=== PATIENT | female | born 1950 | race Caucasian/White ===

== ENCOUNTER 2016-09-14 06:45 | Outpatient (CLI) ==
[2013-09-03 10:39] VITALS: BMI 34.7
--- NOTE | 2016-09-16 08:34 | ECHO2D ---
Date of Exam: 09/14/16 Ordering Physician: ROGER DOMÍNGUEZ Reason for Echo: CHEST PAIN, SOB M-Mode Normal Adult Results LV Dimensions Normal Adult Results AoV Opening excursions >1.6 >1.6 LVEDD-base- 3.5-5.8 3.4 Ao root dimensions 2.0-3.7 3.2 LVESD-base- 3.1-4.6 L. Atrium dimensions 1.9-3.8 3.1 Post. Wall thickness 0.8-1.1 1.1 IV septum (thickness) 0.7-1.2 1.2 Post. Wall excursion 0.72-1.3 NORMAL Septal motion NORMAL Systolic motion R. Ventricular cavity 1.5-2.0 NORMAL LVEF 60% 75% Paradoxical septal wall motion NORMAL 2-D : 2-D M Mode Echocardiogram was performed using apical four chamber and left parasternal long and short axis views. Mitral, tricuspid and aortic valves appear to be normal. Contractility of the left ventricle seems to be normal, so is the cavity size. Left atrial cavity size and aortic root appear to be normal. There is no pericardial effusion. There is no thrombus noted in the left ventricular or left aortic cavity. No mitral valve prolapse noted. M-MODE: MV: NORMAL AV: NORMAL TV: NORMAL PV: CHAMBER SIZE: NORMAL WALL MOTION: NORMAL PERICARDIUM: NORMAL INTERPRETATION: 1. BORDERLINE LEFT VENTRICULAR HYPERTROPHY 2. NORMAL VALVES 3. NORMAL LEFT VENTRICULAR CONTRACTILITY MTDD
== END 2016-09-14 06:46 | disposition home or self-care (01) ==
LOC: CAR 06:45
PROVIDERS: ATTEND Internal Medicine
DX: R07.9 Chest pain, unspecified (principal); R06.02 Shortness of breath
CPT/HCPCS: 93005; 93010

== ENCOUNTER 2016-09-15 06:49 | Outpatient (CLI) ==
[2013-09-03 10:39] VITALS: BMI 34.7
--- NOTE | 2016-09-16 07:52 | STRESSECHO ---
Date of Test: 09/15/16 Reason for Exam: CHEST PAIN, SOB, HTN, DYSLIPIDEMIA, DM Ordering Physician: ROGER DOMÍNGUEZ Current Medications: METFORMIN, SIMVASTATIN, ASA, LOSARTAN, METOPROLOL, CIPRO Physical Findings: S1, S2, NO S3 Resting EKG: SINUS RHYTHM/NO ACUTE CHANGES Target Heart Rate: 132/156 STAGE MPH/GRADE HEART RATE BPM BLOOD PRESSURE mmhg RHYTHM S-T SEGMENT +/- UP DOWN SYMPTOMS,COMMENTS At Rest 70 104/64 SR X NONE 1 1.7/10% 110 110/56 SR X NONE 2 2.5/12% 120 132/150 SR X NONE 3 3.4/14% 4 4.2/16% 5 5.0/18% Immediately after 128 SR X DIZZY Durations of Exercise: 6:44 Maximum Heart Rate Reached: 128 Reason for Termination: DIZZY INTERPRETATION: 94% OXYGEN SATURATION WITH EXERCISE ON ROOM AIR 1. NON DIAGNOSTIC ST-T WAVE CHANGES FOR ISCHEMIA 2. NO CHEST PAIN OR CHEST DISCOMFORT 3. NO ARRHYTHMIAS 4. BLOOD PRESSURE RESPONSE: NORMAL NORMAL LEFT VENTRICULAR CONTRACTILITY--RESTING AND POST EXERCISE MTDD
--- NOTE | 2016-09-16 07:55 | ECHOSTRESS ---
Date of Exam: 09/15/16 Ordering Physician: ROGER DOMÍNGUEZ Reason for Echo: STRESS TEST--NON DIAGNOSTIC ST- T WAVE CHANGES M-Mode Normal Adult Results LV Dimensions Normal Adult Results AoV Opening excursions >1.6 LVEDD-base- 3.5-5.8 Ao root dimensions 2.0-3.7 LVESD-base- 3.1-4.6 L. Atrium dimensions 1.9-3.8 Post. Wall thickness 0.8-1.1 IV septum (thickness) 0.7-1.2 Post. Wall excursion 0.72-1.3 Septal motion Systolic motion R. Ventricular cavity 1.5-2.0 LVEF 60% Paradoxical septal wall motion 2-D: NORMAL LEFT VENTRICULAR CONTRACTILITY--RESTING AND POST EXERCISE M-MODE: MV: AV: TV: PV: CHAMBER SIZE: WALL MOTION: NORMAL LEFT VENTRICULAR CONTRACTILITY--RESTING AND POST EXERCISE PERICARDIUM: INTERPRETATION: 1. NORMAL LEFT VENTRICULAR CONTRACTILITY--RESTING AND POST EXERCISE MTDD
== END 2016-09-15 06:50 | disposition home or self-care (01) ==
LOC: CAR 06:49
PROVIDERS: ATTEND Internal Medicine
DX: R07.9 Chest pain, unspecified (principal); R06.02 Shortness of breath

== ENCOUNTER 2016-10-07 12:21 | Outpatient (CLI) ==
[2013-09-03 10:39] VITALS: BMI 34.7
[2016-10-07 12:39] LABS: ADD URINE MICROSCOPIC YES; BILIRUBIN,URINE Negative (NEGATIVE); KETONES,URINE Trace (NEGATIVE); LEUKOCYTE ESTERASE ,URINE Trace (NEGATIVE); NITRITE,URINE Negative (NEGATIVE); PROTEIN,URINE Negative (NEGATIVE); URINE, BLOOD Negative (NEGATIVE)
[2016-10-07 12:46] LABS: BASOPHILS % (AUTO) 0.5 % (0.0-3.0); EOSINOPHILS # (AUTO) 0.1 K/ul (0.0-0.7); EOSINOPHILS % (AUTO) 1.3 % (0.0-7.0); HEMATOCRIT 41.3 % (37.0-47.0); HEMOGLOBIN 13.7 g/dl (12.0-16.0); IMMATURE GRANULOCYTE % (AUTO) 0.2 % (0.0-5.0); LYMPHOCYTES # (AUTO) 3.1 K/uL (0.60-3.4); LYMPHOCYTES % (AUTO) 38.4 (10.0-50.0); MEAN CORPUSCULAR HEMOGLOBIN 29.3 pg (27.0-31.0); MEAN CORPUSCULAR HGB CONC 33.2 (31.8-35.4); MEAN CORPUSCULAR VOLUME 88.2 fl (81.0-99.0); MONOCYTES # (AUTO) 0.5 K/uL (0.4-2.0); MONOCYTES % (AUTO) 6.3 (0-10); NEUTROPHILS # (AUTO) 4.3 K/ul (2.0-6.9); NEUTROPHILS % (AUTO) 53.3; PLATELET COUNT 245 10^3/uL (140-440); RED BLOOD COUNT 4.68 10^6/ul (4.20-5.40); WHITE BLOOD COUNT 8.15 K/ul (4.6-10.2)
[2016-10-07 12:56] LABS: ALBUMIN 3.7 g/dL (3.4-5.0); ALBUMIN/GLOBULIN RATIO 1.09; ANION GAP 15.6; BILIRUBIN,TOTAL 0.42 mg/dL (0.00-1.20); BUN/CREATININE RATIO 17.04; CHOL/HDL RATIO 4.4 (4.5-5.5); CREATININE 0.88 mg/dL (0.60-1.30); POTASSIUM 3.6 mmol/L (3.5-5.10); TOTAL PROTEIN 7.1 g/dL (5.8-8.1)
== END 2016-10-07 12:22 | disposition home or self-care (01) ==
LOC: LAB 12:21
PROVIDERS: ATTEND Internal Medicine
DX: E11.9 Type 2 diabetes mellitus without complications (principal); I10 Essential (primary) hypertension; E78.5 Hyperlipidemia, unspecified; E53.8 Deficiency of other specified B group vitamins
CPT/HCPCS: 36415; 80053; 80061; 81001; 84443; 85025

== ENCOUNTER 2017-02-01 09:05 | Outpatient (CLI) ==
[2013-09-03 10:39] VITALS: BMI 34.7
[2017-02-01 09:40] LABS: BASOPHILS # (AUTO) 0.1 K/uL (0-0.2); BASOPHILS % (AUTO) 0.7 % (0.0-3.0); EOSINOPHILS # (AUTO) 0.1 K/ul (0.0-0.7); EOSINOPHILS % (AUTO) 1.7 % (0.0-7.0); HEMATOCRIT 40.9 % (37.0-47.0); HEMOGLOBIN 13.6 g/dl (12.0-16.0); IMMATURE GRANULOCYTE % (AUTO) 0.1 % (0.0-5.0); LYMPHOCYTES # (AUTO) 2.9 K/uL (0.60-3.4); LYMPHOCYTES % (AUTO) 40.7 (10.0-50.0); MEAN CORPUSCULAR HEMOGLOBIN 29.1 pg (27.0-31.0); MEAN CORPUSCULAR HGB CONC 33.3 (31.8-35.4); MEAN CORPUSCULAR VOLUME 87.6 fl (81.0-99.0); MONOCYTES # (AUTO) 0.4 K/uL (0.4-2.0); MONOCYTES % (AUTO) 5.9 (0-10); NEUTROPHILS # (AUTO) 3.6 K/ul (2.0-6.9); NEUTROPHILS % (AUTO) 50.9; PLATELET COUNT 214 10^3/uL (140-440); RED BLOOD COUNT 4.67 10^6/ul (4.20-5.40); WHITE BLOOD COUNT 7.06 K/ul (4.6-10.2)
[2017-02-01 10:26] LABS: ALBUMIN 3.6 g/dL (3.4-5.0); ALBUMIN/GLOBULIN RATIO 1.13; BILIRUBIN,TOTAL 0.6 mg/dL (0.00-1.20); BUN/CREATININE RATIO 18.18; CALCIUM 9.4 mg/dL (8.2-10.2); CREATININE 0.88 mg/dL (0.60-1.30); TOTAL PROTEIN 6.8 g/dL (5.8-8.1)
== END 2017-02-01 09:06 | disposition home or self-care (01) ==
LOC: LAB 09:05
PROVIDERS: ATTEND Internal Medicine
DX: E11.9 Type 2 diabetes mellitus without complications (principal); I10 Essential (primary) hypertension; E78.5 Hyperlipidemia, unspecified; E53.8 Deficiency of other specified B group vitamins; E88.81 Metabolic syndrome and other insulin resistance
CPT/HCPCS: 36415; 80053; 80061; 82607; 83036; 84443; 85025

== ENCOUNTER 2017-02-03 13:37 | Outpatient (CLI) ==
[2013-09-03 10:39] VITALS: BMI 34.7
--- NOTE | 2017-02-05 08:28 | MAMMO ---
EXAM: Bilateral digital screening mammogram History: Screening Comparison: Bilateral mammogram 11/15/2015 Findings: MLO and CC views of bilateral breasts demonstrate scattered fibroglandular breast parench yma. Stable benign right breast calcifications. There are no dominant masses, no suspicious microc alcifications and no architectural distortions Impression: Benign stable mammogram. Recommend followup routine screening mammography in 1 year. BIRADS 2
== END 2017-02-03 13:38 | disposition home or self-care (01) ==
LOC: RAD 13:37
PROVIDERS: ATTEND Internal Medicine
DX: Z12.31 Encounter for screening mammogram for malignant neoplasm of breast (principal)

== ENCOUNTER 2018-01-19 09:40 | Emergency (ER) | payer OTHER ==
[2018-01-19 09:45] VITALS: BP 162/92; TEMP 99.3; BMI 30.3
[2018-01-19] MEDS ORDERED: MORPHINE 4 MG/ML SYRINGE IM STA (10:04)
[2018-01-19] MEDS ORDERED: VALIUM PO STA (10:05)
[2018-01-19] MEDS ORDERED: ZOFRAN 4 MG/2 ML IM STA (10:06)
[2018-01-19] MEDS ORDERED: ASPIRIN CHEWABLE PO STA (11:22)
[2018-01-19] MEDS ORDERED: DILAUDID IVP STA (11:26)
--- NOTE | 2018-01-19 11:27 | CT ---
EXAM: CT lumbar spine without contrast. HISTORY: Low back pain. COMPARISON: 04/12/2015. TECHNIQUE: Multiple axial images of the lumbar spine were obtained without intravenous contrast. Im ages were reformatted in the sagittal and coronal planes. FINDINGS: Slight retrolisthesis of L3 on L4, L4 on L5 and L5 on S1 noted. Vertebral body heights ar e maintained. There is mild loss of disc height at L3-4 and L4-5. No fracture identified. Paravert ebral soft tissues are without acute abnormality. T12-L1: No neural compromise. L1-2: No neural compromise. L2-3: Facet arthropathy without neural compromise. L3-4: Broad-based disc bulge and facet arthropathy with mild central canal stenosis and neural damari inal narrowing. L4-5: Broad-based disc bulge, facet arthropathy and thickening of ligamentum flavum with mild centra l canal stenosis and neural foraminal narrowing. L5-S1: Facet arthropathy with mild left neural foraminal narrowing. IMPRESSION: 1. No fracture. 2. Mild multilevel degenerative changes.
--- NOTE | 2018-01-19 11:45 | DI ---
EXAM: CHEST FRONTAL VIEW HISTORY: Sudden onset pain. COMPARISON: 09/03/2013 FINDINGS: Mildly prominent heart size is again noted. There are scattered calcifications suggesting old granulomatous disease. No acute infiltrates are seen. No vascular congestion. There is no cons olidation, visible pleural fluid or pneumothorax. Bones reveal no acute fracture. IMPRESSION: No acute cardiopulmonary process.
--- NOTE | 2018-01-19 12:47 | ED.PDOC ---
General ED Provider: Dr. PERNELL MARTINEZ Chief Complaint: Back Pain Stated Complaint: low back pain lumbar Time Seen by Physician: 10:00 (history of chronic back issue ) Mode of Arrival: Walk-In Information Source: Patient Exam Limitations: No limitations Primary Care Provider: ROGER DOMÍNGUEZ Nursing and Triage Documentation Reviewed and Agree: Yes Reviewed sepsis parameters & appropriate labs ordered?: Yes System Inflammatory Response Syndrome: Not Applicable Sepsis Protocol: For patient's 13 years and over: Temp is 96.8 and below OR 101 and greater Pulse >90 BPM Resp >20/minute Acutely Altered Mental Status Are patient's symptoms suggestive of a new infection, such as: -Pneumonia -Skin, Soft Tissue -Endocarditis -UTI -Bone, Joint Infection -Implantable Device -Acute Abdominal Infection -Wound Infection -Meningitis -Blood Stream Catheter Infection -Unknown System Inflammatory Response Syndrome: Not Applicable Musculoskeletal Complaint Exam - Back Pain Complaint/Exam Mechanism of Injury: Reports: No known trauma Onset/Duration: 1 day Timing: Constant Episodes Lasting: Hours Initial Severity: Severe Current Severity: Severe Location: Reports: Discrete Character: Reports: Aching, Spasmodic, Stiffness Aggravating: Reports: Movements, Lifting, Bending, Walking Alleviating: Reports: Rest, Position Associated Signs and Symptoms: Denies: Swelling, Redness, Bruising, Fever, Weakness, Numbness, Tingling, Abdominal pain, Flank pain, Bladder incontinence, Bowel incontinence, Weight loss, Pain with weight bearing Related History: Reports: Similar episode TAD Risk Factors: Reports: Hypertension AAA Risk Factors: Reports: Hypertension Cauda Equina Risk Factors: Reports: None Epidural Abcess Risk Factors: Reports: None Related Surgical History: Reports: None Focal Tenderness: No Paraspinal Muscle Tenderness: No Paraspinal Muscle Spasm: No Scoliosis: No Lordosis: No Kyphosis: No SLR Test: Right Negative, Left Negative Hip Motion Testing Pain: Right Negative, Left Negative Focal Weakness: Present: None Focal Sensory Loss: Present: None Gait: Present: Normal Differential Diagnoses: Strain, Sprain Review of Systems - Review Of Systems Constitutional: Reports: No symptoms Eyes: Reports: No symptoms Ears, Nose, Mouth, Throat: Reports: No symptoms Respiratory: Reports: No symptoms Cardiac: Reports: Chest pain GI: Reports: No symptoms : Reports: No symptoms Musculoskeletal: Reports: Back pain Skin: Reports: No symptoms Neurological: Reports: No symptoms Endocrine: Reports: No symptoms Hematologic/Lymphatic: Reports: No symptoms All Other Systems: Reviewed and Negative Past Medical History - Past Medical History Previously Healthy: Yes Endocrine: Reports: None Cardiovascular: Reports: Hypertension Respiratory: Reports: None Hematological: Reports: None Gastrointestinal: Reports: None Genitourinary: Reports: None Neuro/Psych: Reports: None Musculoskeletal: Reports: None Cancer: Reports: None Last Menstrual Period: menopause - Surgical History General Surgical History: Reports: None - Family History Family History: Reports: None - Social History Smoking Status: Former smoker Hx Substance Use: No Alcohol Screening: None Physical Exam - Physical Exam Appearance: Well-appearing, No pain distress, Well-nourished Eyes: WENDY, EOMI, Conjunctiva clear ENT: Ears normal, Nose normal, Oropharynx normal Respiratory: Airway patent, Breath sounds clear, Breath sounds equal, Respirations nonlabored Cardiovascular: RRR, Pulses normal, No rub, No murmur GI/: Soft, Nontender, No masses, Bowel sounds normal, No Organomegaly Musculoskeletal: Normal strength, ROM intact, No edema, No calf tenderness Skin: Warm, Dry, Normal color Neurological: Sensation intact, Motor intact, Reflexes intact, Cranial nerves intact, Alert, Oriented Psychiatric: Affect appropriate, Mood appropriate Re-Evaluation - Re-Evaluation Time of Re-Evaluation: 11:30 (chest pain onset , negative vomiting) Pain Level: 10/10 chest pain occured at 11:30 am the pain was central with no radition - Re-Evaluation Time of Re-Evaluation: 12:15 Status: Improved Vital Signs Stable: Yes Pain Level: 0 Appearance: NAD Skin: Warm and Dry Neuro: Alert and Oriented X3 CV: RRR (, ekg negative for acute event) Physician Notification - Case Discussed Physician Notified: Saritha Time of Notification: 12:54 (TRANSFER ) Critical Care Note - Critical Care Note Total Time (mins): 0 Course - Course Hematology/Chemistry: 01/19/18 11:25 01/19/18 11:25 Orders, Labs, Meds: Lab Review 01/19/18 01/19/18 01/19/18 11:25 11:25 11:25 WBC 8.85 RBC 5.06 Hgb 14.6 Hct 43.8 MCV 86.6 MCH 28.9 MCHC 33.3 RDW Coeff of Jonah 12.8 Plt Count 234 Immature Gran % (Auto) 0.2 Neut % (Auto) 63.3 Lymph % (Auto) 26.8 [place] % (Auto) 7.7 Eos % (Auto) 1.5 Baso % (Auto) 0.5 Immature Gran # (Auto) 0.0 Neut # (Auto) 5.6 Lymph # (Auto) 2.4 [place] # (Auto) 0.7 Eos # (Auto) 0.1 Baso # (Auto) 0.0 PT 9.4 INR 0.94 APTT 24.3 Sodium 143 Potassium 3.8 Chloride 102 Carbon Dioxide 29 Anion Gap 15.8 BUN 15 Creatinine 0.82 Estimated GFR (MDRD) 70.00 BUN/Creatinine Ratio 18.29 Glucose 81 L Calcium 10.5 H Total Bilirubin 0.8 AST 45 H ALT 33 Alkaline Phosphatase 65 Total Creatine Kinase 71 Troponin I < 0.0100 Total Protein 7.9 Albumin 4.1 Globulin 3.8 Albumin/Globulin Ratio 1.08 Orders Category Date Time Status EKG-(ED ONLY) Stat CARDIO 01/19/18 11:22 Completed EKG-(ED ONLY) Stat CARDIO 01/19/18 12:50 Ordered ED IV/MEDIPORT/POWERPORT .ONCE EMERGENCY 01/19/18 11:21 Active CBC W/ AUTO DIFF Stat LAB 01/19/18 11:25 Completed COMPREHENSIVE METABOLIC PANEL Stat LAB 01/19/18 11:25 Completed CREATINE KINASE Stat LAB 01/19/18 11:25 Completed PARTIAL THROMBOPLASTIN TIME Stat LAB 01/19/18 11:25 Completed PT WITH INR Stat LAB 01/19/18 11:25 Completed TROPONIN I Stat LAB 01/19/18 11:25 Completed 0.9 % Sodium Chloride [Saline Flush] MEDS 01/19/18 11:21 Active 1 syr IVF PRN PRN Aspirin [Aspirin Chewable] MEDS 01/19/18 11:22 Discontinued 243 mg PO ONCE STA Diazepam [Valium] MEDS 01/19/18 10:05 Discontinued 5 mg PO ONCE STA Hydromorphone HCl [Dilaudid] MEDS 01/19/18 11:26 Discontinued 0.5 mg IVP ONCE STA Morphine Sulfate [Morphine 4 mg/ml Syringe] MEDS 01/19/18 10:04 Discontinued 4 mg IM ONCE STA Ondansetron HCl/Pf [Zofran 4 mg/2 ml] MEDS 01/19/18 10:06 Discontinued 4 mg IM ONCE STA CHEST, 1V AP ONLY Stat RADS 01/19/18 11:[address] LUMBAR SPINE W/O CONTRAST Stat RADS 01/19/18 10:06 Completed Medications Generic Name Dose Route Start Last Admin Trade Name Freq PRN Reason Stop Dose Admin Sodium Chloride 1 syr 01/19/18 11:21 Saline Flush IVF PRN PRN To flush IV Discontinued Medications Generic Name Dose Route Start Last Admin Trade Name Freq PRN Reason Stop Dose Admin Aspirin 243 mg 01/19/18 11:22 01/19/18 11:37 Aspirin Chewable PO 01/19/18 11:23 162 mg ONCE STA Administration Diazepam 5 mg 01/19/18 10:05 01/19/18 10:17 Valium PO 01/19/18 10:06 5 mg ONCE STA Administration Hydromorphone HCl 0.5 mg 01/19/18 11:26 01/19/18 12:01 Dilaudid IVP 01/19/18 11:27 0.5 mg ONCE STA Administration Morphine Sulfate 4 mg 01/19/18 10:04 01/19/18 10:20 Morphine 4 Mg/Ml Syringe IM 01/19/18 10:05 4 mg ONCE STA Administration Ondansetron HCl 4 mg 01/19/18 10:06 01/19/18 10:21 Zofran 4 Mg/2 Ml IM 01/19/18 10:07 4 mg ONCE STA Administration Vital Signs: Temp Pulse Resp BP Pulse Ox 01/19/18 09:41 99.3 F 84 20 162/92 H 96 Departure - Departure Time of Disposition: 12:55 (NO ACUTE EVENT WHILE WHILE AT [facility] ED ) Disposition: TSF SHORT-TRM HOSP Discharge Problem: Chest pain Qualifiers: Chest pain type: unspecified Qualified Code(s): R07.9 - Chest pain, unspecified Instructions: Chest Pain (DC) Condition: Good Pt referred to PMD for follow-up: Yes IPMP verified?: No Additional Instructions: Please call your Family Physician as soon as possible to schedule a follow-up appointment. Allergies/Adverse Reactions: Allergies Iodinated Contrast- Oral and IV Dye Adverse Reaction (Verified 01/19/18 09:49) iodine Adverse Reaction (Verified 01/19/18 09:49) latex Adverse Reaction (Verified 01/19/18 09:48) Penicillins Adverse Reaction (Verified 01/19/18 09:48) transparent dressing Adverse Reaction (Verified 01/19/18 09:48) Home Medications: Ambulatory Orders Hydrochlorothiazide 25 mg PO DAILY 09/03/13 Metoprolol Succinate [Toprol Xl] 100 mg PO DAILY 09/03/13 Albiglutide [Tanzeum] 30 mg SQ WEEKLY 01/19/18 Amlodipine Besylate [Norvasc] 10 mg PO DAILY 01/19/18 Aspirin [Aspir-Low] 81 mg PO DAILY 01/19/18 Losartan Potassium 100 mg PO DAILY 01/19/18 Metformin HCl 1,000 mg PO TID 01/19/18 Omeprazole Magnesium [Prilosec Otc] 20 mg PO DAILY 01/19/18 Simvastatin [Zocor] 40 mg PO DAILY 01/19/18 Disposition Discussed With: Patient
== END 2018-01-19 13:18 | disposition short-term general hospital (02) ==
LOC: ED 09:40
DX: R07.9 Chest pain, unspecified (principal); M54.5 Low back pain; I10 Essential (primary) hypertension; Z79.899 Other long term (current) drug therapy
CPT/HCPCS: 36415; 80053; 82550; 84484; 85025; 85610; 85730; 93005; 93010; 96372; 96374; 99285

== ENCOUNTER 2018-09-19 13:18 | Outpatient (CLI) ==
--- NOTE | 2018-09-21 09:15 | MAMMO ---
EXAM: Digital screening mammogram with tomosynthesis HISTORY: Screening COMPARISON: 02/03/2017 FINDINGS: Digital MLO and CC views of the right and left breast were performed. Tomosynthesis was performed. There are scattered fibroglandular densities. Computer aided detection utilized. Benign calcifications in the right breast. There is no evidence for mass, asymmetry, distortion, or suspic ious calcifications in either breast. IMPRESSION: 1. No evidence of malignancy in the right or left breast. 2. Annual screening mammogram is recommended in one year. BIRADS category 2, benign
== END 2018-09-19 13:19 | disposition home or self-care (01) ==
LOC: RAD 13:18
PROVIDERS: ATTEND Internal Medicine
DX: Z12.31 Encounter for screening mammogram for malignant neoplasm of breast (principal)

== ENCOUNTER 2023-11-09 13:57 | Observation (INO) ==
[2023-11-09 14:43] LABS: BASOPHILS % (AUTO) 0.5 % (0.0-3.0); EOSINOPHILS # (AUTO) 0.2 K/ul (0.0-0.7); HEMATOCRIT 43.2 % (37.0-47.0); IMMATURE GRANULOCYTE % (AUTO) 0.1 % (0.0-5.0); LYMPHOCYTES # (AUTO) 3.8 K/uL (0.60-3.4); LYMPHOCYTES % (AUTO) 43.8 (10.0-50.0); MEAN CORPUSCULAR HEMOGLOBIN 28.2 pg (27.0-31.0); MEAN CORPUSCULAR HGB CONC 32.4 (31.8-35.4); MEAN CORPUSCULAR VOLUME 87.1 fl (81.0-99.0); MONOCYTES # (AUTO) 0.6 K/uL (0.4-2.0); MONOCYTES % (AUTO) 7.4 (0-10); NEUTROPHILS % (AUTO) 46.2 % (42.2-75.2); PLATELET COUNT 253 10^3/uL (140-440); RDW COEFFICIENT OF VARIATION 13.5 % (11.6-14.8); RED BLOOD COUNT 4.96 10^6/ul (4.20-5.40); WHITE BLOOD COUNT 8.66 K/ul (4.6-10.2)
--- NOTE | 2023-11-09 14:49 | ED.PDOC ---
General ED Provider: Dr. HOMERO PARHAM MD Chief Complaint: Chest Pain Stated Complaint: 73 yo female with hx of HTN, DM type 2,asthma, dyslipidemia coming to the ER for chest pain. Patient was walking home from her daughter's house to her house and she feels retrosternal chest pain aggravated by walking elevated by rest the pain is dull squeezing retrosternal nonradiating. Patient was also feeling short of breath but no wheezes. Patient reports also history of anxiety she did not feel anxious when she had a chest pain. Otherwise she denies any headache, nausea, vomiting, changes in bowel or urine. Time Seen by Provider: 11/09/23 14:10 Information Source: Patient Primary Care Provider: ROGER DOMÍNGUEZ MD Nursing and Triage Documentation Reviewed and Agree: Yes What is Opioid Naive?: *Opioid Naive implies the patient is not already taking opioids or not chronically receiving opioids on a daily basis. *PRN dosing is not "usually" associated with tolerance. *Patients are at higher risk of over-sedation and aspiration. What is Opioid Tolerant?: *Opioid Tolerance implies less than the expected response to an opioid. *Acquired tolerance is defined by the patient taking 60mg of oral morphine daily (or equianalgesic dose of another opioid) for 1 week or more. *Often associated with chronic pain. *May take more than usual dose to achieve desired pain control. Review of Systems Review Of Systems Constitutional: Reports No symptoms All Other Systems: Reviewed and Negative [facility] Family History FATHER Cancer BROTHER Hypertension Heart disease SISTER Hypertension CVA (cerebral vascular accident) Social History Smoking and tobacco status: Former smoker Quit date: 02/27/94 Passive smoking exposure: No How long ago did patient quit smokin years ago Quit status: quit date established Second hand smoke exposure: No Smoking risk assessment performed: Yes Alcohol intake: never Counseling given: No Counseling provided: none Substance use type: does not use Special ye needs: No Agree to transfusion: Yes Adopted: No Caregiver/support person: No Foster care: No Household members: none Housing: house Marital status: D Lives independently: Yes Daycare: no daycare Number of children: 2 Highest education level completed: Associate degree: occupational, technical, vocational program Financial difficulty paying for basics: somewhat hard service: No longterm: No Current occupational status: unemployed 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 Leisure activites: other History of recent travel: No Sexually active: No Do you think of yourself as: straight/heterosexual Current gender identity: female Seatbelt use: always Helmet use: No Drives intoxicated or rides with intoxicated sanitation truck driver: No Current diet type/program: regular Well-balanced diet: about half the time Caffeine: Yes Eating out: 1-3 times/week Reads food labels: sometimes During the past year weight has: remained stable Water heater temperature set < 120 degrees: Yes Working smoke detector in home: Yes Fire extinguisher in home: Yes Carbon monoxide detector in home: Yes Firearms in home: No What type of physical activity do you participate in?: walking Physical activity functional status: independent ambulation How many days of moderate to strenuous exercise, like a brisk walk, did you do in the last 7 days: 4 Female Reproductive History Menstrual Age of Menarche: 15 Hx Hysterectomy: No Hx Tubal Ligation: Yes Physical Exam Physical Exam Appearance: Reports Well-appearing Ill-appearing: None Pain Distress: None Eyes: Reports WENDY ENT: Reports Ears normal and Nose normal Neck: Supple Respiratory: Reports Airway patent, Breath sounds clear, Breath sounds equal and Other (Tenderness to palpation to left parasternal area.) Cardiovascular: Reports RRR, Pulses normal, No rub and No murmur GI/: Reports Soft, Nontender, No masses and Bowel sounds normal Musculoskeletal: Reports Normal strength, ROM intact and No edema Skin: Reports Warm and Normal color Neurological: Reports Sensation intact and Motor intact Psychiatric: Reports Affect appropriate Interpretation EKG Interpretation EKG Interpretation By: ED Physician Time of EKG #1: 14:13 Rate: Normal Rhythm: Sinus Ectopy: None [place]: NL ST Segment: Normal Interpretation: No signs of acute ischemia Course Course 11/09/23 14:35 11/09/23 14:35 Orders, Labs, Meds: Lab Review 11/09/23 11/09/23 14:35 16:00 WBC 8.66 RBC 4.96 Hgb 14.0 Hct 43.2 MCV 87.1 MCH 28.2 MCHC 32.4 RDW Coeff of Jonah 13.5 Plt Count 253 Immature Gran % (Auto) 0.1 Neut % (Auto) 46.2 Lymph % (Auto) 43.8 S[place] % (Auto) 7.4 Eos % (Auto) 2.0 Baso % (Auto) 0.5 Neut # (Auto) 4.0 Lymph # (Auto) 3.8 H [place] # (Auto) 0.6 Eos # (Auto) 0.2 Baso # (Auto) 0.0 Immature Gran # (Auto) 0.0 Sodium 137.4 Potassium 3.58 Chloride 99.0 Carbon Dioxide 26.5 Anion Gap 15.48 BUN 21.9 H Creatinine 1.09 Estimated GFR (MDRD) 49.00 BUN/Creatinine Ratio 20.09 Glucose 111.2 H Calcium 10.18 Total Bilirubin 0.76 AST 32.8 ALT 23.5 Alkaline Phosphatase 64.1 Total Creatine Kinase 52.6 Troponin I < 0.012 < 0.012 Total Protein 7.71 Albumin 4.60 Globulin 3.11 Albumin/Globulin Ratio 1.47 D-Dimer 320.77 Orders Category Date Time Status EKG-(ED ONLY) Stat CARDIO 11/09/23 14:25 Completed CBC W/ AUTO DIFF Stat LAB 11/09/23 14:35 Completed COMPREHENSIVE METABOLIC PANEL Stat LAB 11/09/23 14:35 Completed COVID [SARS COV-2 RNA RAPID NISSA] Stat LAB 11/09/23 17:17 Ordered CREATINE KINASE Stat LAB 11/09/23 14:35 Completed D-DIMER Stat LAB 11/09/23 14:35 Completed TROPONIN I Stat LAB 11/09/23 14:35 Completed TROPONIN I Stat LAB 11/09/23 16:00 Completed Aspirin [Aspirin Chewable] Meds 11/09/23 14:25 Discontinued 324 mg PO ONCE STA CHEST, 1V AP ONLY Stat RADS 11/09/23 14:25 Completed Medications Discontinued Medications Generic Name Dose Route Start Last Admin Trade Name Freq PRN Reason Stop Dose Admin Aspirin 324 mg 11/09/23 14:25 11/09/23 15:16 Aspirin 81 Mg Tab.Chew PO 11/09/23 14:26 324 mg ONCE STA Administration Vital Signs: Temp Pulse Resp BP Pulse Ox 11/09/23 14:00 97.6 F 82 20 150/86 H 100 EKG did not show any acute changes troponin negative x 2 chest x-ray no acute findings D-dimer is negative spoke with Dr. Domínguez and discussed the patient case with them and he agreed with keeping the patient under observation for cardiac stress test tomorrow. MONISHA Risk Score MONISHA Risk Score: Risk Score Odds of by 30D 0 0.1 (0.1-0.2) 1 0.3 (0.2-0.3) 2 0.4 (0.3-0.5) 3 0.7 (0.6-0.9) 4 1.2 (1.0-1.5) 5 2.2 (1.9-2.6) 6 3.0 (2.5-3.6) 7 4.8 (3.8-6.1) Physician Progress Note: [] Discharge Plan Discharge Patient Disposition: ADMITTED INPATIENT Discharge Problem: Chest pain Prescriptions: No Action (DME) OneTouch Ultra Test Strip See Rx Instructions .ROUTE Qty: 100 5RF Rx Instructions: As directed E11.9 test twice daily metformin 500 mg tablet See Rx Instructions .ROUTE .COMPLEX Qty: 90 0RF Dose Instruction: TAKE 1 TABLET BY MOUTH EVERY DAY Rx Instructions: TAKE 1 TABLET BY MOUTH EVERY DAY losartan 100 mg tablet See Rx Instructions .ROUTE .COMPLEX Qty: 90 0RF Dose Instruction: TAKE 1 TABLET BY MOUTH DAILY Rx Instructions: TAKE 1 TABLET BY MOUTH DAILY amlodipine 5 mg tablet 5 mg PO QDAY Qty: 90 1RF tobramycin 0.3 % drops 2 drp BOTHEYES TID 7 Days Qty: 5 0RF Jardiance 25 mg tablet See Rx Instructions .ROUTE .COMPLEX Qty: 30 3RF Dose Instruction: TAKE ONE TABLET DAILY Rx Instructions: TAKE ONE TABLET DAILY metoprolol succinate [Toprol XL] 100 mg tablet extended release 24 hr 100 mg PO DAILY Qty: 90 1RF hydrochlorothiazide 25 mg tablet 25 mg PO DAILY Qty: 90 1RF aspirin [Aspir-Low] 81 MG tablet,delayed release (DR/EC) 81 mg PO DAILY omeprazole magnesium [Prilosec OTC] 20 MG tablet,delayed release (DR/EC) 20 mg PO DAILY alprazolam [Xanax] 0.25 mg tablet 0.25 mg PO QHS PRN (Reason: anxiety) folic acid 400 mcg tablet 0.4 mg PO QDAY B Complex Plus Vitamin C [id number] mg capsule 1 cap PO QDAY Rx Instructions: give with food (meal/snack) cholecalciferol (vitamin D3) 25 mcg (1,000 unit) capsule 25 mcg PO QDAY metformin 1,000 mg tablet 1,000 mg PO BID Qty: 180 1RF albuterol sulfate 90 mcg/actuation HFA aerosol inhaler 2 puff inhalation QID PRN (Reason: shortness of breath) simvastatin [Zocor] 40 mg tablet 40 mg PO DAILY Qty: 90 1RF Did you review [place] for ALL controlled substances?: Not Applicable ED Provider: HOMERO PARHAM Condition: Good
--- NOTE | 2023-11-09 14:54 | DI ---
EXAM: SINGLE VIEW CHEST XRAY. Date: 11/09/2023 Comparison: 03/26/2023 History: Chest pain Findings: No acute osseous abnormalities are seen. The lungs are clear . The cardiac silhouette is within normal limits. The pulmonary vasculature is within normal limits. Impresson: No acute intrathoracic findings.
[2023-11-09 14:58] LABS: ALANINE AMINOTRANSFERASE 23.5 U/L (0-35); ALKALINE PHOSPHATASE 64.1 U/L (53-141); ASPARTATE AMINO TRANSFERASE 32.8 U/L (14-36); BILIRUBIN,TOTAL 0.76 mg/dL (0.2-1.3); BLOOD UREA NITROGEN 21.9 mg/dL (7-17); CALCIUM 10.18 mg/dL (8.4-10.2); CARBON DIOXIDE 26.5 mmol/L (22-30.0); CREATINE KINASE 52.6 U/L (30-135); CREATININE 1.09 mg/dL (0.60-1.30); GLUCOSE 111.2 mg/dL (74-106); POTASSIUM 3.58 mmol/L (3.5-5.1); SODIUM 137.4 mmol/L (134.5-145); TOTAL PROTEIN 7.71 g/dL (6.3-8.2)
[2023-11-09 15:10] LABS: TROPONIN I < 0.012 ng/ml (0.0000-0.120)
[2023-11-09] MEDS: ASPIRIN CHEWABLE PO STA (15:16)
[2023-11-09] MEDS ORDERED: TYLENOL PO PRN (17:21)
[2023-11-09] MEDS ORDERED: NITROSTAT SL PRN (17:21)
[2023-11-09] MEDS ORDERED: ZOFRAN 4 MG/2 ML IVP PRN (17:25)
[2023-11-09 17:34] LABS: SARS COV-2 RNA RAPID NAAT NEGATIVE (NEGATIVE)
[2023-11-09 18:37] VITALS: BMI 29.2
[2023-11-09] MEDS ORDERED: VENTOLIN HFA IH PRN (19:19)
[2023-11-09] MEDS ORDERED: HUMULIN R SUBCUT PRN (19:21)
[2023-11-09 20:57] LABS: CHOLESTEROL 155.1 mg/dL (0-200); HDL CHOLESTEROL 40.3 mg/dL (35-80); TRIGLYCERIDES 186.5 mg/dL (0-150)
[2023-11-09] MEDS ORDERED: XANAX PO PRN (21:00)
[2023-11-09 21:29] LABS: THYROID STIMULATING HORMONE 1.84 uIU/L (0.465-4.68)
[2023-11-10 05:29] LABS: BASOPHILS % (AUTO) 0.4 % (0.0-3.0); EOSINOPHILS # (AUTO) 0.2 K/ul (0.0-0.7); EOSINOPHILS % (AUTO) 2.4 % (0.0-7.0); HEMATOCRIT 41.3 % (37.0-47.0); HEMOGLOBIN 12.9 g/dl (12.0-16.0); IMMATURE GRANULOCYTE % (AUTO) 0.1 % (0.0-5.0); LYMPHOCYTES # (AUTO) 3.3 K/uL (0.60-3.4); LYMPHOCYTES % (AUTO) 41.2 (10.0-50.0); MEAN CORPUSCULAR HEMOGLOBIN 27.3 pg (27.0-31.0); MEAN CORPUSCULAR HGB CONC 31.2 (31.8-35.4); MEAN CORPUSCULAR VOLUME 87.5 fl (81.0-99.0); MONOCYTES # (AUTO) 0.7 K/uL (0.4-2.0); MONOCYTES % (AUTO) 8.9 (0-10); NEUTROPHILS # (AUTO) 3.8 K/ul (2.0-6.9); PLATELET COUNT 224 10^3/uL (140-440); RDW COEFFICIENT OF VARIATION 13.4 % (11.6-14.8); RED BLOOD COUNT 4.72 10^6/ul (4.20-5.40); WHITE BLOOD COUNT 7.98 K/ul (4.6-10.2)
[2023-11-10 05:42] LABS: ALANINE AMINOTRANSFERASE 21.4 U/L (0-35); ALBUMIN 3.97 g/dL (3.5-5.0); ALKALINE PHOSPHATASE 55.9 U/L (53-141); ASPARTATE AMINO TRANSFERASE 26.7 U/L (14-36); BILIRUBIN,TOTAL 0.71 mg/dL (0.2-1.3); BLOOD UREA NITROGEN 20.6 mg/dL (7-17); CALCIUM 9.24 mg/dL (8.4-10.2); CARBON DIOXIDE 30.7 mmol/L (22-30.0); CHLORIDE 101.3 mmol/L (98-107); CREATININE 0.91 mg/dL (0.60-1.30); GLUCOSE 135.5 mg/dL (74-106); POTASSIUM 3.12 mmol/L (3.5-5.1); SODIUM 138.4 mmol/L (134.5-145); TOTAL PROTEIN 6.67 g/dL (6.3-8.2)
[2023-11-10] MEDS: ASPIRIN EC PO SCH (07:33)
[2023-11-10] MEDS: COZAAR PO SCH (08:35)
[2023-11-10] MEDS: TOPROL XL PO SCH (08:35)
[2023-11-10] MEDS: HYDROCHLOROTHIAZIDE PO SCH (08:35)
[2023-11-10] MEDS: JARDIANCE PO SCH (08:35)
[2023-11-10] MEDS: VITAMIN D PO SCH (08:36)
[2023-11-10] MEDS: NORVASC PO SCH (08:36)
[2023-11-10] MEDS: K-DUR PO ONE (08:41)
--- NOTE | 2023-11-10 13:07 | PCM.SS ---
Provider Provider: POLLY BOOTHE MD, [facility] Admission Date Admission Date: 11/09/23 Discharge Date Discharge Date: 11/10/23 Primary Care Physician Primary Care Physician: ROGER BOOTHE MD Chief Complaint Reason For Visit: chest pain, elevated HR History of Present Illness History of Present Illness: Admitted 11/09/23 17:39, this 73 year old /WHITE/F presented to the ER with chest pain and shortness of breath. Patient states that she has had intermittent chest pain for the past 1 month. Describes the pain as a dull ache and sometimes heaviness accompanied with shortness of breath. At times she feels her heart racing and has to cough or bear down to get the symptoms to resolve. Has had 4 heart caths in the past with no stents. Has had a ventricular blood clot back in 2018. States that prior to arrival to the ER her HR on her pulse ox showed in the 200s and oxygen sat in the 80s. While in ER, these findings were not present. Troponin x2 negative. EKG sinus with no acute changes. Denies fever, chills, N/V/D. [facility] Medical History Asthma J45.909 - Unspecified asthma, uncomplicated (ICD-10) Family History FATHER Cancer BROTHER Hypertension Heart disease SISTER Hypertension CVA (cerebral vascular accident) Social History Smoking and tobacco status: Former smoker Quit date: 02/27/94 Passive smoking exposure: No How long ago did patient quit smokin years ago Quit status: quit date established Second hand smoke exposure: No Smoking risk assessment performed: Yes Alcohol intake: never Counseling given: No Counseling provided: none Substance use type: does not use Special ye needs: No Agree to transfusion: Yes Adopted: No Caregiver/support person: No Foster care: No Household members: none Housing: house Marital status: D Lives independently: Yes Daycare: no daycare Number of children: 2 Highest education level completed: Associate degree: occupational, technical, vocational program Financial difficulty paying for basics: somewhat hard service: No long-term: No Current occupational status: unemployed 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 Leisure activites: other History of recent travel: No Sexually active: No Do you think of yourself as: straight/heterosexual Current gender identity: female Seatbelt use: always Helmet use: No Drives intoxicated or rides with intoxicated interstate bus driver: No Current diet type/program: regular Well-balanced diet: about half the time Caffeine: Yes Eating out: 1-3 times/week Reads food labels: sometimes During the past year weight has: remained stable Water heater temperature set < 120 degrees: Yes Working smoke detector in home: Yes Fire extinguisher in home: Yes Carbon monoxide detector in home: Yes Firearms in home: No What type of physical activity do you participate in?: walking Physical activity functional status: independent ambulation How many days of moderate to strenuous exercise, like a brisk walk, did you do in the last 7 days: 4 Medications Mecications: Medications at Discharge (Home Meds & RX) aspirin 81 mg tablet,delayed release (Aspir-Low) 81 mg PO DAILY 01/19/18 omeprazole magnesium 20 mg tablet,delayed release (Prilosec OTC) 20 mg PO DAILY 01/19/18 albuterol sulfate 90 mcg/actuation aerosol inhaler 2 puff inhalation QID PRN shortness of breath 04/06/23 blood sugar diagnostic (WellnessFXTouch Ultra Test strips) #100 ea 06/03/23 alprazolam 0.25 mg tablet (Xanax) 0.25 mg PO QHS PRN anxiety 07/12/23 amlodipine 5 mg tablet 5 mg PO QDAY #90 tabs 08/24/23 losartan 100 mg tablet See Rx Instructions .Route .COMPLEX #90 tabs 08/24/23 cholecalciferol (vitamin D3) 25 mcg (1,000 unit) capsule 25 mcg PO QDAY 10/06/23 folic acid 400 mcg tablet 0.4 mg PO QDAY 10/06/23 metformin 1,000 mg tablet 1,000 mg PO BID #180 tabs 10/06/23 vitamin B comp and C no.3 15 mg-10 mg-50 mg-5 mg-300 mg capsule (B Complex Plus Vitamin C) 1 cap PO QDAY 10/06/23 empagliflozin 25 mg tablet (Jardiance) See Rx Instructions .Route .COMPLEX #30 tabs 11/08/23 tobramycin 0.3 % eye drops 2 drp BOTHEYES TID 7 days #5 mL 11/08/23 hydrochlorothiazide 25 mg tablet 25 mg PO DAILY #90 tabs 11/09/23 metformin 500 mg tablet See Rx Instructions .Route .COMPLEX 11/09/23 metoprolol succinate 100 mg tablet,extended release 24 hr (Toprol XL) 100 mg PO DAILY #90 tabs 11/09/23 simvastatin 40 mg tablet (Zocor) 40 mg PO QPM 11/09/23 Allergies Allergies Allergy/AdvReac Type Severity Reaction Status Date / Time iodine AdvReac Intermediate Rash Verified 11/09/23 14:07 Penicillins AdvReac Unknown other Verified 11/09/23 14:07 Iodinated Contrast Media AdvReac Rash Verified 11/09/23 14:07 [Iodinated Contrast- Oral and IV Dye] latex AdvReac Rash Verified 11/09/23 14:07 transparent dressing AdvReac Rash Verified 11/09/23 14:07 Review of Systems Constitutional: Reports No symptoms Head: Reports Normocephalic Eyes: Reports No symptoms Ears: Reports No symptoms Nose: Reports No symptoms Mouth: Reports No symptoms Throat: Reports No symptoms Cardiovascular: Reports Chest pain Respiratory: Reports Shortness of air Gastrointestinal: Reports No symptoms Genitourinary: Reports No Symptoms Musculoskeletal: Reports No symptoms Endocrine: Reports No symptoms Hematology: Reports No symptoms Immunology: Reports No symptoms Neurological: Reports No symptoms Psychiatric: Reports No symptoms Physical Examination Appearance: Positive No Apparent Distress and Alert and Oriented x3 Head: Positive Normocephalic and Atraumatic Eyes: Positive WENDY ENT: Positive Nares Normal and Oropharynx Normal Neck: Positive Supple, Non-Tender, Trachea Midline and No Carotid Bruits Heart: Positive RRR and No Murmurs Respiratory: Positive Airway patent, Breath Sounds Clear, Bilaterally, Breath Sounds Equal and Respirations Nonlabored GI/: Positive Soft, Nontender, Bowel sounds normal and No Distention Extremities: Positive Pedal Pulses Palpable Bilaterally Neurological: Positive Sensation Intact, Motor Intact, Reflexes Intact, Alert and Oriented Psychiatric: Positive Normal Judgement, Normal Insight and Affect Appropriate Vital Signs (Last 4 Hours) Vital Signs Last 4 Hours: Vital Signs: Last 4 Hours 11/10/23 09:56 11/10/23 10:00 11/10/23 10:00 Temperature 98.3 F Temperature Source Temporal Artery Scan Pulse Rate 65 Respiratory Rate 17 Blood Pressure 116/74 Blood Pressure Mean 88 Blood Pressure Location Right Arm Blood Pressure Position Supine O2 Sat by Pulse Oximetry 99 95 Oxygen Delivery Method Room Air Room Air Nasal Cannula 11/10/23 10:50 11/10/23 10:51 11/10/23 11:31 Temperature Temperature Source Pulse Rate Respiratory Rate Blood Pressure Blood Pressure Mean Blood Pressure Location Blood Pressure Position O2 Sat by Pulse Oximetry 87 L Oxygen Delivery Method Room Air Room Air Room Air Labs This Visit Labs This Visit: Labs This Visit 11/09/23 11/09/23 11/09/23 14:35 16:00 17:15 WBC 8.66 RBC 4.96 Hgb 14.0 Hct 43.2 MCV 87.1 MCH 28.2 MCHC 32.4 RDW Coeff of Jonah 13.5 Plt Count 253 Immature Gran % (Auto) 0.1 Neut % (Auto) 46.2 Lymph % (Auto) 43.8 [place] % (Auto) 7.4 Eos % (Auto) 2.0 Baso % (Auto) 0.5 Neut # (Auto) 4.0 Lymph # (Auto) 3.8 H [place] # (Auto) 0.6 Eos # (Auto) 0.2 Baso # (Auto) 0.0 Immature Gran # (Auto) 0.0 Sodium 137.4 Potassium 3.58 Chloride 99.0 Carbon Dioxide 26.5 Anion Gap 15.48 BUN 21.9 H Creatinine 1.09 Estimated GFR (MDRD) 49.00 BUN/Creatinine Ratio 20.09 Glucose 111.2 H Hemoglobin A1c Calcium 10.18 Total Bilirubin 0.76 AST 32.8 ALT 23.5 Alkaline Phosphatase 64.1 Total Creatine Kinase 52.6 Troponin I < 0.012 < 0.012 Total Protein 7.71 Albumin 4.60 Globulin 3.11 Albumin/Globulin Ratio 1.47 Triglycerides Cholesterol LDL Cholesterol, Calc VLDL Cholesterol HDL Cholesterol Cholesterol/HDL Ratio TSH D-Dimer 320.77 SARS CoV-2 RNA Rapid NISSA Negative 11/09/23 11/10/23 20:30 05:02 WBC 7.98 RBC 4.72 Hgb 12.9 Hct 41.3 MCV 87.5 MCH 27.3 MCHC 31.2 L RDW Coeff of Jonah 13.4 Plt Count 224 Immature Gran % (Auto) 0.1 Neut % (Auto) 47.0 Lymph % (Auto) 41.2 [place] % (Auto) 8.9 Eos % (Auto) 2.4 Baso % (Auto) 0.4 Neut # (Auto) 3.8 Lymph # (Auto) 3.3 [place] # (Auto) 0.7 Eos # (Auto) 0.2 Baso # (Auto) 0.0 Immature Gran # (Auto) 0.0 Sodium 138.4 Potassium 3.12 L Chloride 101.3 Carbon Dioxide 30.7 H Anion Gap 9.52 BUN 20.6 H Creatinine 0.91 Estimated GFR (MDRD) 61.00 BUN/Creatinine Ratio 22.63 Glucose 135.5 H Hemoglobin A1c 6.68 H Calcium 9.24 Total Bilirubin 0.71 AST 26.7 ALT 21.4 Alkaline Phosphatase 55.9 Total Creatine Kinase Troponin I < 0.012 Total Protein 6.67 Albumin 3.97 Globulin 2.70 Albumin/Globulin Ratio 1.47 Triglycerides 186.5 H Cholesterol 155.1 LDL Cholesterol, Calc 78 VLDL Cholesterol 37 H HDL Cholesterol 40.3 Cholesterol/HDL Ratio 3.8 L TSH 1.840 D-Dimer SARS CoV-2 RNA Rapid NISSA Review Review Statement: I have independently reviewed and interpreted the labs/EKGs/imaging that were ordered by the ER provider. I have reviewed all outside records that are available currently in our EMR including imaging/notes/labs from previous visits. Plan Reccomendations/Plan: 1. Chest pain - serial troponins completed and negative, stress echo and echo completed with no signs of ischemia or changes compared to previous echo, TSH, lipid panel, and hemoglobin A1c unremarkable, checked pft to r/o copd dx due to reports of sob and hx of smoking, event monitor on d/c Additional Planning: Case discussed with ED Physician, Dr. Rome. DVT Prophylaxis: Ambulation Disposition: Admit to: Med/Surg Observation Discussed Plan of Care with Dr. Jennie Boothe. If patient discharged with Left Ventricular Systolic Dysfunction: No Discharged with a beta carlitos? [] If no, why not? [] Discharged with an scott/arb? [] If no, why not? [] DX: CHEST PAIN RX: POTASSIUM DIABETIC DIET ACTIVITY TOLERATED FOLLOW-UP WITH PCP NEXT WEEK Review With Patient Reviewed with Patient and Family: Patient and family have been counseled on condition and care plan and have no immediate questions. I have personally discussed and reviewed the patient's visit/current labs/imaging/decision making with Dr. Navin Boothe, my supervising attending. Total number of minutes spent with patient 85 min. More than 50% of the time spent with this patient was devoted to counseling and coordination of care. Time of Admission: 11/09/23 17:39 Time of Discharge: 11/10/23 13:15 Discharge Plan Discharge Discharge Orders: Discharge Patient (ONCE); Ordered 11/10/23 Ordered By: DENY SHARIF Activity Restrictions/Additional Instructions: Diabetic Diet Activity As Tolerated Follow-up with PCP next week Wear your event monitor as directed. Your PCP will discuss results with you when completed. Go to the nearest emergency room if you begin to experience chest pain. Medications: Potassium 20 mEq daily until discontinued by PCP Instructions: Chest Pain (GEN) Care Plan Goals: Problem: Activity Intolerance Goal: Demonstrate increased activity intolerance Instructions: Determine cause of activity intolerance Change positions slowly Gradually increase activity Report intolerances to providerProblem: Alteration in Comfort/Pain Goal: Manage pain at a tolerable level Instructions: Monitor character, location and intensity Express expectations of pain relief Pain medication as ordered Position for maximal comfort Pain management prior to activities Patient Disposition: HOME SELF-CARE Prescriptions: New potassium chloride 20 mEq tablet extended release 20 meq PO DAILY Qty: 14 0RF Continued (DME) OneTouch Ultra Test Strip See Rx Instructions .ROUTE Qty: 100 5RF Rx Instructions: As directed E11.9 test twice daily losartan 100 mg tablet See Rx Instructions .ROUTE .COMPLEX Qty: 90 0RF Dose Instruction: TAKE 1 TABLET BY MOUTH DAILY Rx Instructions: TAKE 1 TABLET BY MOUTH DAILY amlodipine 5 mg tablet 5 mg PO QDAY Qty: 90 1RF tobramycin 0.3 % drops 2 drp BOTHEYES TID 7 Days Qty: 5 0RF Jardiance 25 mg tablet See Rx Instructions .ROUTE .COMPLEX Qty: 30 3RF Dose Instruction: TAKE ONE TABLET DAILY Rx Instructions: TAKE ONE TABLET DAILY metoprolol succinate [Toprol XL] 100 mg tablet extended release 24 hr 100 mg PO DAILY Qty: 90 1RF hydrochlorothiazide 25 mg tablet 25 mg PO DAILY Qty: 90 1RF metformin 500 mg tablet See Rx Instructions .ROUTE .COMPLEX Rx Instructions: TAKE 1 TABLET BY MOUTH AT NOON simvastatin [Zocor] 40 mg tablet 40 mg PO QPM aspirin [Aspir-Low] 81 MG tablet,delayed release (DR/EC) 81 mg PO DAILY omeprazole magnesium [Prilosec OTC] 20 MG tablet,delayed release (DR/EC) 20 mg PO DAILY alprazolam [Xanax] 0.25 mg tablet 0.25 mg PO QHS PRN (Reason: anxiety) folic acid 400 mcg tablet 0.4 mg PO QDAY B Complex Plus Vitamin C [id number] mg capsule 1 cap PO QDAY Rx Instructions: give with food (meal/snack) cholecalciferol (vitamin D3) 25 mcg (1,000 unit) capsule 25 mcg PO QDAY metformin 1,000 mg tablet 1,000 mg PO BID Qty: 180 1RF albuterol sulfate 90 mcg/actuation HFA aerosol inhaler 2 puff inhalation QID PRN (Reason: shortness of breath) Did you review [place] RN WOUND for ALL controlled substances?: No Discussed opioids are addictive and Narcan is available by prescription or from pharmacy.: No Condition: Good Referrals: ROGER BOOTHE MD [Primary Care Provider] - 11/15/23 1:00 pm
[2023-11-10 14:21] VITALS: BP 133/71; PULSE 78; RESP 18; TEMP 98.7
[2023-11-10] MEDS ORDERED: ZOCOR PO SCH (17:00)
--- NOTE | 2023-11-11 11:57 | STRESSMOD ---
Date of Test: 11/10/2023 Ordering Physician: STANLEY VIERA (HOSP.), DR. DOMÍNGUEZ (PCP) Occupation:RETIRED Reason for Exam: CHEST PAIN, DIABETES MELLITUS TYPE 2, METABOLIC SYNDROME, HYPERTENSION Smoking History: FORMER Height: 62" Weight: 157lbs. Current Medications: ALBUTEROL HFA, XANAX, AMLODIPINE, ASPIRIN, B COMPLEX PLUS VITAMIN C, VITAMIN D3, FOLIC ACID, HYDROCHLOROTHIAZIDE, JARDIANCE, LOSARTAN, METFORMIN, METOPROLOL SUCCINATE, OMEPRAZOLE, SIMVASTATIN, TOBRAMYCIN Resting EKG: SINUS RHYTHM / NO ACUTE CHANGES / NON SPECIFIC ST-T WAVE CHANGES Target Heart Rate: 126 Oxygen Saturation @ Rest on Room Air: 99% S-T SEGMENT STAGE MPH/GRADE HEART RATE BPM BLOOD PRESSURE mmhg RHYTHM +/- ELEVATION DEPRESSION SYMPTOMS At Rest 58 102/48 SR X NONE 1 1.7/0% 92 120/58 SR X NONE 2 1.7/5% 128/50 SR X NONE 3 1.7/10% 4 2.5/12% 5 3.4/14% Immediately After 104 SR X FATIGUE Minutes Post Exercise 1 80 SR X NONE Minutes Post Exercise 6 60 110/50 SR X NONE DURATION OF EXERCISE: 5 MINUTES 38 SECONDS MAXIMUM HEART RATE REACHED: 104 REASON FOR TERMINATION: FATIGUE 94% OXYGEN SATURATION WITH EXERCISE ON ROOM AIR METS 7.0 INTERPRETATION: 1. NO EVIDENCE OF ISCHEMIA FROM RESTING HEART RATE OF 58 BPM TO 104 BPM WITH EXERCISE METS 7.0. 2. NO CHEST PAIN OF DISCOMFORT. 3. BLOOD PRESSURE RESPONSE ADEQUATE. 4. NO ARRHYTHMIAS. 5. NORMAL LEFT VENTRICULAR CONTRACTILITY AT REST AND POST EXERCISE. MTDD
--- NOTE | 2023-11-14 12:02 | ECHOSTRESS ---
Date of Exam: 11/10/2023 Ordering Physician: DR. ROGER DOMÍNGUEZ Reason for Echo: CHEST PAIN, SOB, HTN, STRESS TEST--NO ISCHEMIA M-Mode Normal Adult Results LV Dimensions Normal Adult Results AoV Opening excursions >1.6 LVEDD-base- 3.5-5.8 Ao root dimensions 2.0-3.7 LVESD-base- 3.1-4.6 L. Atrium dimensions 1.9-3.8 Post. Wall thickness 0.8-1.1 IV septum (thickness) 0.7-1.2 Post. Wall excursion 0.72-1.3 Septal motion Systolic motion R. Ventricular cavity 1.5-2.0 LVEF 60% Paradoxical septal wall motion 2-D: NORMAL LEFT VENTRICLE CONTRACTILITY--RESTING AND POST EXERCISE M-MODE: MV: AV: TV: PV: CHAMBER SIZE: WALL MOTION: NORMAL LEFT VENTRICLE CONTRACTILITY--RESTING AND POST EXERCISE PERICARDIUM: INTERPRETATION: 1. NORMAL LEFT VENTRICLE CONTRACTILITY--RESTING AND POST EXERCISE MTDD
--- NOTE | 2023-11-14 12:07 | ECHO2D ---
Date of Exam: 11/10/2023 Ordering Physician: DR. ROGER DOMÍNGUEZ Room #: [id number] Reason for Echo: SOB, HTN, CHEST PAIN M-Mode Normal Adult Results LV Dimensions Normal Adult Results AoV Opening excursions >1.6 >1.6 LVEDD-base- 3.5-5.8 3.6 Ao root dimensions 2.0-3.7 3.0 LVESD-base- 3.1-4.6 L. Atrium dimensions 1.9-3.8 3.9 Post. Wall thickness 0.8-1.1 1.1 IV septum (thickness) 0.7-1.2 1.2 Post. Wall excursion 0.72-1.3 NORMAL Septal motion NORMAL Systolic motion R. Ventricular cavity 1.5-2.0 NORMAL LVEF 60% >60% Paradoxical septal wall motion NORMAL 2-D : 2-D M Mode Echocardiogram was performed using apical four chamber and left parasternal long and short axis views. Mitral, tricuspid and aortic valves appear to be normal. Contractility of the left ventricle seems to be normal, so is the cavity size. Left atrial cavity size and aortic root appear to be normal. There is no pericardial effusion. There is no thrombus noted in the left ventricle or left atrial cavity. COLOR FLOW: SPECTRAL DOPPLER MITRAL VALVE FLOW A WAVE > E WAVE M-MODE: MV: NORMAL AV: NORMAL TV: NORMAL PV: CHAMBER SIZE: NORMAL WALL MOTION: NORMAL PERICARDIUM: NORMAL INTERPRETATION: 1. EVIDENCE OF DIASTOLIC DYSFUNCTION 2. BORDERLINE LEFT VENTRICLE HYPERTROPHY 3. BORDERLINE LEFT ATRIAL CAVITY 4. NORMAL LEFT VENTRICLE CAVITY AND LEFT VENTRICLE CONTRACTILITY 5. NORMAL VALVES MTDD
== END 2023-11-10 14:46 | disposition home or self-care (01) ==
LOC: ED 13:57 → MEDSURG B 13:57
PROVIDERS: ADMIT Hospitalist; ATTEND Nurse Practitioner Family
DX: Z51.81 Encounter for therapeutic drug level monitoring; R06.02 Shortness of breath; I10 Essential (primary) hypertension; E78.5 Hyperlipidemia, unspecified; Z20.822 Contact with and (suspected) exposure to COVID-19; Z79.899 Other long term (current) drug therapy; E11.9 Type 2 diabetes mellitus without complications; R07.9 Chest pain, unspecified; R00.0 Tachycardia, unspecified; Z79.84 Long term (current) use of oral hypoglycemic drugs